=== PATIENT | male | born 1945 | race Caucasian/White ===

== ENCOUNTER 2019-04-05 06:24 | Emergency (ER) | payer MEDICARE ==
--- NOTE | 2019-04-05 06:54 | ED Physician Documentation ---
PD HPI MALE - Stated complaint Stated Complaint: MALE - Chief complaint Chief Complaint: Abd Pain - History obtained from History obtained from: Patient - History of Present Illness Timing - onset: How many weeks ago (1) Timing - duration: Weeks (1) Timing - details: Gradual onset, Still present, Waxing and waning Associated symptoms: Dysuria, Urinary frequency (today with feeling of unable to urinate.) Recently seen: Clinic (His urologist started him on Bactrim 2 days ago for presumed UTI based on his symptoms.) Review of Systems Constitutional: denies: Fever, Chills, Myalgias Nose: denies: Rhinorrhea / runny nose, Congestion Throat: denies: Sore throat Cardiac: denies: Chest pain / pressure Respiratory: denies: Cough GI: reports: Abdominal Pain (suprapubic area with feeling of bladder fullness.), Nausea. denies: Vomiting, Diarrhea PD PAST MEDICAL HISTORY - Past Medical History Cardiovascular: None Respiratory: None : Benign prostate hypertrophy - Present Medications Home Medications: Ambulatory Orders Medication Instructions Recorded Confirmed Nitrofurantoin Macrocrystal 50 mg PO DAILY 04/05/19 04/05/19 [Nitrofurantoin] Saw Enigma 160 mg PO DAILY #30 capsule 04/05/19 Sulfamethoxazole/Trimethoprim 800 each PO BID 04/05/19 04/05/19 [Bactrim 400-80 mg Tablet] Terazosin [Hytrin] 4 mg PO QPM 04/05/19 04/05/19 - Allergies Allergies/Adverse Reactions: Allergies Allergy/AdvReac Type Severity Reaction Status Date / Time levofloxacin [From Levaquin] Allergy Unknown Verified 04/05/19 06:36 PD ED PE NORMAL - Vitals Vital signs reviewed: Yes - General General: Alert and oriented X 3, Well developed/nourished, Other (appears uncomfortable with feeling of full bladder. ) - Abdomen Abdomen: Normal bowel sounds, Soft, No organomegaly, Other (tender in suprapubic area with fullness. ) Results - Vitals Vitals: Vital Signs - 24 hr 04/05/19 06:30 Temperature 36.8 C Heart Rate 77 Respiratory 16 Rate Blood Pressure 138/72 H O2 Saturation 94 Oxygen O2 Source Room air - Labs Labs: Laboratory Tests 04/05/19 07:05 Urine Color YELLOW Urine Clarity CLEAR Urine pH 6.5 Ur Specific [place] 1.010 Urine Protein NEGATIVE Urine Glucose (UA) NEGATIVE Urine Ketones NEGATIVE Urine Occult Blood NEGATIVE Urine Nitrite NEGATIVE Urine Bilirubin NEGATIVE Urine Urobilinogen 0.2 (NORMAL) Ur Leukocyte Esterase NEGATIVE Ur Microscopic Review NOT INDICATED Urine Culture Comments NOT INDICATED PD MEDICAL DECISION MAKING - ED course Complexity details: considered differential (sounds like he has had retention with pressure incontinence/spasms, and now full retention. Was started on abx couple days ago by his Urologist (by phone) and has appt with him next week. ), d/w patient Departure - Departure Disposition: Home, Self Care Clinical Impression: Acute urinary retention Condition: Stable Record reviewed to determine appropriate education?: Yes Instructions: Catheter Indwelling Urinary Dc, ED Catheter Care [place] Prescriptions: Saw Enigma 160 mg PO DAILY #30 capsule Comments: Your urine looks clear at this point. I presume the Bactrim antibiotic is working. We will keep the catheter in for a few days as the antibiotics are still clearing the infection. You can add saw palmetto to terra Zosyn to help with prostate. Stay well-hydrated. Follow-up with your urologist or primary care in several days for presumed catheter removal. Discharge Date/Time: 04/05/19 08:47
[2019-04-05 07:16] LABS: BILIRUBIN,URINE NEGATIVE (NEGATIVE); GLUCOSE, URINE (UA) NEGATIVE (NEGATIVE); KETONES,URINE (UA) NEGATIVE (NEGATIVE); LEUKOCYTE ESTERASE, URINE NEGATIVE (NEGATIVE); NITRITE,URINE NEGATIVE (NEGATIVE); OCCULT BLOOD,URINE NEGATIVE (NEGATIVE); PH,URINE 6.5 PH (5.0-7.5); PROTEIN,URINE NEGATIVE (NEGATIVE); UROBILINOGEN,URINE 0.2 (NORMAL) E.U./dL (NORMAL)
[2019-04-05 07:19] LABS: CLARITY,URINE CLEAR (CLEAR)
[2019-04-05 07:50] VITALS: BP 138/72
== END 2019-04-05 08:47 | disposition home or self-care (01) ==
LOC: ED 06:24
DX: R33.9 Retention of urine, unspecified (principal)
CPT/HCPCS: 51702; 81001; 81003; 87086; 99283

== ENCOUNTER 2019-04-07 07:58 | Emergency (ER) | payer MEDICARE ==
[2019-04-07 08:42] LABS: GLUCOSE, URINE (UA) NEGATIVE (NEGATIVE); KETONES,URINE (UA) NEGATIVE (NEGATIVE); LEUKOCYTE ESTERASE, URINE LARGE (NEGATIVE); NITRITE,URINE NEGATIVE (NEGATIVE); OCCULT BLOOD,URINE LARGE (NEGATIVE); PROTEIN,URINE TRACE mg/dL (NEGATIVE); UROBILINOGEN,URINE 0.2 (NORMAL) E.U./dL (NORMAL)
[2019-04-07 08:47] LABS: BILIRUBIN,URINE SMALL (NEGATIVE); CLARITY,URINE CLOUDY (CLEAR); ICTOTEST,URINE POSITIVE
--- NOTE | 2019-04-07 08:47 | ED Physician Documentation ---
PD HPI MALE - Stated complaint Stated Complaint: CEBALLOS COMPLICATIONS - Chief complaint Chief Complaint: General - History obtained from History obtained from: Patient - History of Present Illness Timing - onset: How many days ago (Had urinary retention after week long motorcycle trip and had ceballos placed few days ago here. Was on abx for presumed UTI. Takes Terazosin; did not add Saw [place]. Here for [place]all[place] removal[place], so won't get to his Urologist for couple weeks when returns. He would like to see if able to urinate now and have ceballos out.) Timing - duration: Days Timing - details: Abrupt onset Associated symptoms: Indwelling catheter (for past few days and here for removal. Urine got cloudy since last night.) Similar symptoms before: Diagnosis (urinary retention with motorcycle trip in the past, improved after couple days post trip.) Recently seen: Emergency Dept (few days ago with ceballos placed.) Review of Systems Constitutional: denies: Fever, Chills Nose: denies: Rhinorrhea / runny nose, Congestion Throat: denies: Sore throat Respiratory: denies: Cough GI: denies: Abdominal Pain, Nausea, Vomiting PD PAST MEDICAL HISTORY - Past Medical History Past Medical History: Yes Cardiovascular: None Respiratory: None : Benign prostate hypertrophy - Past Surgical History Past Surgical History: Yes General: Appendectomy Ortho: Rotator cuff repair, Other - Present Medications Home Medications: Ambulatory Orders Medication Instructions Recorded Confirmed Nitrofurantoin Macrocrystal 50 mg PO DAILY 04/05/19 04/07/19 [Nitrofurantoin] Saw [place] 160 mg PO DAILY #30 capsule 04/05/19 04/07/19 Sulfamethoxazole/Trimethoprim 800 each PO BID 04/05/19 04/07/19 [Bactrim 400-80 mg Tablet] Terazosin [Hytrin] 4 mg PO QPM 04/05/19 04/07/19 Cephalexin [Keflex] 500 mg PO TID #20 capsule 04/07/19 - Allergies Allergies/Adverse Reactions: Allergies Allergy/AdvReac Type Severity Reaction Status Date / Time levofloxacin [From Levaquin] Allergy Unknown Verified 04/07/19 08:07 - Social History Does the pt smoke?: No Smoking Status: Never smoker Does the pt drink ETOH?: No Does the pt have substance abuse?: No - Immunizations Immunizations are current?: No - POLST Patient has POLST: No PD ED PE NORMAL - Vitals Vital signs reviewed: Yes - General General: Alert and oriented X 3, No acute distress, Well developed/nourished - Abdomen Abdomen: Soft, Non tender - Male Male : Other (ceballos in place and draining well. ) - Back Back: No CVA TTP - Derm Derm: Normal color, Warm and dry Results - Vitals Vitals: Vital Signs - 24 hr 04/07/19 04/07/19 08:04 09:47 Temperature 37.0 C Heart Rate 81 68 Respiratory 16 16 Rate Blood Pressure 128/75 123/95 H O2 Saturation 99 98 Oxygen O2 Source Room air - Labs Labs: Laboratory Tests 04/07/19 08:38 Urine Color YELLOW Urine Clarity CLOUDY Urine pH 6.0 Ur Specific [place] 1.025 Urine Protein TRACE Urine Glucose (UA) NEGATIVE Urine Ketones NEGATIVE Urine Occult Blood LARGE H Urine Nitrite NEGATIVE Urine Bilirubin SMALL H Urine Urobilinogen 0.2 (NORMAL) Ur Leukocyte Esterase LARGE H Urine RBC 11-25 H Urine WBC >25 H Ur Squamous Epith Cells RARE Squamous Urine Crystals 3-5 Calcium Oxalate Urine Bacteria Few Ur Microscopic Review INDICATED Urine Culture Comments INDICATED PD MEDICAL DECISION MAKING - ED course Complexity details: considered differential (he would like to try without ceballos. It is AM, so reasonable time to remove it and see how he does. He is from [facility], so won't really be able to see Urology. Had been given referral on prior visit and he called but did not get appt until . ), d/w patient Departure - Departure Disposition: Home, Self Care Clinical Impression: Encounter for Ceballos catheter removal UTI (urinary tract infection) Qualifiers: Urinary tract infection type: acute cystitis Hematuria presence: without hematuria Qualified Code(s): N30.00 - Acute cystitis without hematuria Condition: Stable Record reviewed to determine appropriate education?: Yes Instructions: ED UTI Cystitis Male Prescriptions: Cephalexin [Keflex] 500 mg PO TID #20 capsule Comments: There is some white cells in a couple of bacteria seen on the urine test. This may be just inflammatory related to the catheter being in. It still reasonable to take the catheter out today and see if you are able to urinate well through the day and into tomorrow etc. Given some inflammatory response with the white cells on the urine test, it may be that the infection did not completely clear as an alternative as well. Therefore I would have you stop the Bactrim that you have been taking and changed to cephalexin just in case. Return if unable to urinate through the day. Otherwise follow-up with urology. Add the Saw [place] to your medications. Discharge Date/Time: 04/07/19 09:48
[2019-04-07 08:56] LABS: BACTERIA,URINE Few /HPF (None Seen); CRYSTALS,URINE 3-5 Calcium Oxalate /LPF; SQUAMOUS EPITHELIAL CELL,UR RARE Squamous (<= Few)
[2019-04-07] MEDS ORDERED: cephALEXin 250 MG CAPSULE PO STA (09:03)
[2019-04-07 09:48] VITALS: BP 123/95
== END 2019-04-07 09:48 | disposition home or self-care (01) ==
LOC: ED 07:58
DX: Z46.6 Encounter for fitting and adjustment of urinary device (principal); N30.00 Acute cystitis without hematuria
CPT/HCPCS: 81001; 87086; 99283; 99284; A9270; 81003